=== PATIENT | male | born 1955 ===

== ENCOUNTER 2018-12-08 01:39 | Outpatient (CLI) | payer SELFPAY | END 2018-12-08 23:59 | disposition home or self-care (01) | LOC: DIABETIC 01:39 | PROVIDERS: ATTEND Specialist | DX: E11.65 Type 2 diabetes mellitus with hyperglycemia (principal); Z79.82 Long term (current) use of aspirin; Z79.84 Long term (current) use of oral hypoglycemic drugs; Z88.0 Allergy status to penicillin | CPT/HCPCS: G0108 ==

== ENCOUNTER 2019-01-11 01:35 | Outpatient (CLI) | payer MEDICARE, BC | END 2019-01-11 23:59 | disposition home or self-care (01) | LOC: DIABETIC 01:35 | PROVIDERS: ATTEND Specialist | DX: E11.65 Type 2 diabetes mellitus with hyperglycemia (principal); Z79.82 Long term (current) use of aspirin; Z79.84 Long term (current) use of oral hypoglycemic drugs; Z88.0 Allergy status to penicillin | CPT/HCPCS: G0108 ==

== ENCOUNTER 2019-04-26 04:55 | Outpatient (CLI) | payer MEDICARE, BC | END 2019-04-26 23:59 | disposition home or self-care (01) | LOC: DIABETIC 04:55 | PROVIDERS: ATTEND Specialist | DX: E11.65 Type 2 diabetes mellitus with hyperglycemia (principal); Z79.84 Long term (current) use of oral hypoglycemic drugs; Z79.82 Long term (current) use of aspirin; Z79.899 Other long term (current) drug therapy; Z88.0 Allergy status to penicillin | CPT/HCPCS: G0108 ==

== ENCOUNTER 2019-07-26 04:20 | Outpatient (CLI) | payer MEDICARE, BC | END 2019-07-26 23:59 | disposition home or self-care (01) | LOC: DIABETIC 04:20 | PROVIDERS: ATTEND Specialist | DX: E11.69 Type 2 diabetes mellitus with other specified complication (principal) | CPT/HCPCS: G0108 ==

== ENCOUNTER 2019-11-15 06:40 | Outpatient (CLI) | payer MEDICARE, BC | END 2019-11-15 23:59 | disposition home or self-care (01) | LOC: DIABETIC 06:40 | PROVIDERS: ATTEND Specialist | DX: E11.65 Type 2 diabetes mellitus with hyperglycemia (principal); Z79.84 Long term (current) use of oral hypoglycemic drugs | CPT/HCPCS: G0108 ==